=== PATIENT | male | born 1965 | race Caucasian/White ===

== ENCOUNTER 2022-03-03 19:33 | Emergency (ER) | payer BC ==
[2022-03-03] MEDS ORDERED: Diphtheria,Pertussis(Acell),Tetanus Vaccine 0.5 ML Syringe IM ONE (19:50)
[2022-03-03] MEDS ORDERED: Lidocaine 1% 10 ML MDV INJECT ONE (20:05)
== END 2022-03-03 20:34 | disposition home or self-care (01) ==
LOC: JD.ED 19:33
DX: S61.211A Laceration without foreign body of left index finger without damage to nail, initial encounter (principal); S61.213A Laceration without foreign body of left middle finger without damage to nail, initial encounter; Z91.030 Bee allergy status; Z23 Encounter for immunization; W26.8XXA Contact with other sharp object(s), not elsewhere classified, initial encounter
CPT/HCPCS: 12002; 90471; 90715; 99282; 99282-25